=== PATIENT | female | born 1995 | race Hispanic/Latino ===

== ENCOUNTER → 2017-11-26 | Emergency (ER) | payer SELFPAY ==
[~2017-11-26] VITALS: Ht 154.9 cm; Wt 70.3 kg
[~2017-11-26] MED LIST: CEFTRIAXONE SOD 1 GM VIAL IM ONE; LIDOCAINE HCL 1% LOCAL INJ 20 ML VIAL ONE
[2017-11-26 06:12] LABS: BILIRUBIN,URINE NEGATIVE (NEGATIVE); KETONES,URINE NEGATIVE (NEGATIVE); LEUKOCYTE ESTERASE ,URINE 2+ (NEGATIVE); URINE UROBILINOGEN 0.2 mg/dL (0.2 - 1)
[2017-11-26 06:17] LABS: PREGNANCY TEST, URINE NEGATIVE (NEGATIVE)
[2017-11-26 06:18] LABS: CLARITY,URINE CLOUDY (CLEAR); COLOR,URINE BROWN (YELLOW); NITRITE,URINE POSITIVE (NEGATIVE); PROTEIN,URINE DIPSTICK 2+ (NEGATIVE)
[2017-11-26 06:25] LABS: BACTERIA,URINE MODERATE /HPF; RBC,URINE >50 /HPF (0-5)
[2017-11-26 06:26] LABS: EPITHELIAL CELLS,URINE RARE /LPF
[2017-11-26 06:27] LABS: WBC,URINE (MAN) >50 /HPF (0-5)
== END | disposition home or self-care (01) ==
LOC: ER 05:28
DX: R30.0 Dysuria (principal); N30.91 Cystitis, unspecified with hematuria
CPT/HCPCS: 81001; 81025; 87086; 87186; 99283; J0696; J2001